=== PATIENT | female | born 1970 | race Caucasian/White ===

== ENCOUNTER 2018-10-11 07:45 | Day surgery (SDC) | payer MEDICAID ==
[2018-10-06 14:33] LABS: BASOPHILS 0.2 % (0-2); EOSINOPHILS 1.3 % (0-7); HEMATOCRIT 40.5 % (36.0-48.0); HEMOGLOBIN 13.7 g/dL (12-16); IMMATURE GRANULOCYTES 0.2 % (0-5); LYMPHOCYTES 39.1 % (15-50); MCH 31.1 pg (26.0-34.0); MCHC 33.8 g/dL (31.0-37.0); MEAN PLATELET VOLUME 9.7 fL (7.4-10.4); MONOCYTES 4.5 % (2-11); NEUTROPHILS 54.7 % (40-80); PLATELET COUNT 294 10x3/uL (130-400); RDW 12.8 % (11.5-14.5); WBC 8.7 10x3/uL (4.8-10.8)
[2018-10-06 15:19] LABS: CALC OSMOLALITY 280 mosm/kg (275-300); CALCIUM 9.6 mg/dL (8.5-10.1); CARBON DIOXIDE 27.7 mmol/L (21.0-32.0); CHLORIDE - SERUM 102 mmol/L (98-107); CREATININE - SERUM 0.8 mg/dL (0.6-1.3); GLUCOSE 143 mg/dL (74-106); SODIUM 139 mmol/L (136-145); UREA NITROGEN 15 mg/dL (7-18); eGFR NON AFRICAN AMERICAN 82 mL/min (90-120)
[~2018-10-11] VITALS: Ht 157.5 cm; Wt 79.8 kg
[~2018-10-11 07:45] MED LIST: BACLOFEN10 MG PO; COZAAR50 MG PO; GLUCOTROL 5 MG T5 MG PO; KENALOG 0.1 % O15 GM TOPICAL; METFORMIN HCL500 M1 PO; XANAX1 MG PO; ZOLOFT100 MG PO
[2018-10-11 08:13] VITALS: BP 118/77; Ht 157.5 cm; Wt 79.8 kg
[2018-10-11 09:03] LABS: HCG URINE NEGATIVE (NEGATIVE)
== END 2018-10-11 17:20 | disposition home or self-care (01) ==
LOC: D.OPS 07:45 → D.PAN 08:50 → D.OPS 08:50
PROVIDERS: Anesthesiology; Obstetrics & Gynecology
DX: N83.9 Noninflammatory disorder of ovary, fallopian tube and broad ligament, unspecified (principal); N93.9 Abnormal uterine and vaginal bleeding, unspecified

== ENCOUNTER 2020-05-02 10:21 | Emergency (ER) | payer MEDICAID ==
[~2020-05-02] VITALS: Ht 157.5 cm; Wt 71.4 kg
[2020-05-02 10:35] VITALS: Ht 157.5 cm; Wt 71.4 kg
[2020-05-02] MEDS ORDERED: BUPROPION HCL100 M1 PO (10:37)
[2020-05-02] MEDS ORDERED: PERCOCET 7.5/321 TAB PO (10:38)
[2020-05-02] MEDS ORDERED: KEFLEX500 MG PO (10:41)
[2020-05-02] MEDS ORDERED: CLEOCIN HCL300 MG PO (10:57)
[2020-05-02 11:25] VITALS: BP 130/72
== END 2020-05-02 11:30 | disposition home or self-care (01) ==
LOC: D.ER 10:21
DX: S80.812A Abrasion, left lower leg, initial encounter (principal); S80.811A Abrasion, right lower leg, initial encounter; S30.811A Abrasion of abdominal wall, initial encounter; S40.812A Abrasion of left upper arm, initial encounter; S40.811A Abrasion of right upper arm, initial encounter; S60.512A Abrasion of left hand, initial encounter; S60.511A Abrasion of right hand, initial encounter; S20.419A Abrasion of unspecified back wall of thorax, initial encounter; L03.90 Cellulitis, unspecified; Z48.00 Encounter for change or removal of nonsurgical wound dressing; V29.9XXA Motorcycle rider (driver) (passenger) injured in unspecified traffic accident, initial encounter; Y93.9 Activity, unspecified; Y92.9 Unspecified place or not applicable; E11.9 Type 2 diabetes mellitus without complications; I10 Essential (primary) hypertension; Z72.0 Tobacco use; Z79.84 Long term (current) use of oral hypoglycemic drugs